=== PATIENT | female | born 1950 | race Caucasian/White ===

== ENCOUNTER 2023-09-06 04:23 | Emergency (ER) | payer MEDICARE, SELFPAY ==
[2023-09-06] VITALS (22 sets, daily range): BP systolic 99–128; BP diastolic 61–100; PULSE 63–84; RESP 12–21; TEMP 36.4; O2SAT 90–98
--- NOTE | ~2023-09-06 | CT_ITS ---
EXAMINATION: CT abdomen pelvis w con DATE: 09/06/2023 06:34 INDICATION: Abdominal pain. TECHNIQUE: Computed tomography (CT) of the abdomen and pelvis was performed with 100 mL Omnipaque 350 intravenous contrast. Automated exposure control and iterative reconstruction technique were employe d. The dose-length product was 1170.80 mGy-cm. COMPARISON: None. FINDINGS: The visualized portions of the lung bases demonstrate mild atelectasis. No pleural effusion . The heart size is normal. No pericardial effusion. The liver, gallbladder, spleen, pancreas, adrena l glands, and kidneys are normal. There is a large ventral hernia containing small and large bowel. T here is an anastomosis in the sigmoid colon. There are changes of right hemicolectomy. There are mult iple dilated loops of small bowel with transition point in the ventral hernia. There is a stent in le ft common iliac vein. 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 The orbits are normal. There is no free intraperitoneal fluid. There is severe lumbar spondylosis. IMPRESSION: 1. Small bowel obstruction with transition point in a ventral hernia. 2. 3.3 cm fusiform aneurysm of infrarenal aorta. Reviewed, dictated and finalized at location E.
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
--- NOTE | 2023-09-06 04:45 | ECG_ITS ---
SEE SCANNED COPY FOR CONFIRMED REPORT MTDD
[2023-09-06 05:23] LABS: Basophils Percent Auto 0.1 % (0.2-1.2); Eosinophils Percent Auto 0.1 % (0-4.4); Hematocrit 44.3 % (37.0-47.0); Hemoglobin 13.9 g/dL (12.0-15.0); Immature Granulocyte Absolute 0.01 K/mm3 (0.00-0.031); Immature Granulocyte Percent A 0.1 % (0-0.5); Lymphocytes Absolute Auto 0.87 K/mm3 (0.9-3.2); Lymphocytes Percent Auto 11.6 % (18.3-44.2); Mean Corpuscular HGB Conc 31.4 g/dl (32-36); Mean Corpuscular Hemoglobin 29.7 pg (26-34); Mean Corpuscular Volume 94.7 fl (80-100); Mean Platelet Volume 9.5 fl (7.4-10.4); Monocytes Absolute Auto 0.2 K/mm3 (0.1-0.6); Monocytes Percent Auto 3.2 % (2.6-8.5); Neutrophils Absolute Auto 6.4 K/mm3 (1.3-6.7); Neutrophils Percent Auto 84.9 % (45.5-73.1); Platelet Count Result 315 k/mm3 (150-375); Red Blood Count 4.68 M/mm3 (4.2-5.4); Red Cell Distribution Width 12.7 % (11.5-14.5); White Blood Count 7.5 K/mm3 (4.5-10.0)
[2023-09-06] MEDS: SODIUM CHLORIDE 0.9% IV 500 ML 999 ML IV CONT (05:27)
[2023-09-06] MEDS: ONDANSETRON INJ 4 MG/2 ML VIAL IV PUSH (05:28)
[2023-09-06] MEDS: FAMOTIDINE 20 MG/2 ML VIAL IV PUSH (05:28)
[2023-09-06] MEDS: MORPHINE SULFATE (*CRX) 4 MG/ML INJ IV PUSH (05:28)
[2023-09-06 05:34] LABS: Prothrombin Time 13.8 Seconds (11.1-14.7)
[2023-09-06 05:35] LABS: Lactic Acid Reflex 2.6 mmol/L (0.7-2.0); Partial Thromboplastin Time 31.5 Seconds (22.3-36.8)
--- NOTE | 2023-09-06 06:20 | PC.NURSE ---
Patient taken to CT via stretcher at this time with green top for Istat. New green top sent to lab as well.
[2023-09-06 06:28] LABS: Estimated Glomerular Filt Rate 44
[2023-09-06 06:45] LABS: Troponin I < 0.012 ng/mL (0.000-0.034)
[2023-09-06 07:38] LABS: Alanine Aminotransferase 17 U/L (6-35); Albumin Level 3.8 g/dL (3.5-5.1); Alkaline Phosphatase 124 U/L (38-126); Anion Gap 4 mmol/L (4-12); Aspartate Amino Transferase 18 U/L (14-36); Bilirubin,Total 0.4 mg/dL (0.2-1.3); Blood Urea Nitrogen 24 mg/dL (7-17); Calcium 8.9 mg/dL (8.4-10.2); Carbon Dioxide 24 mmol/L (22-30); Chloride 112 mmol/L (98-107); Estimated Glomerular Filt Rate 54; Glucose 119 mg/dL (65-110); Magnesium 1.8 mg/dL (1.6-2.3); Potassium 4.9 mmol/L (3.4-5.0); Sodium 140 mmol/L (137-145)
[2023-09-06 07:54] LABS: Lipase 60 U/L (23-300)
[2023-09-06 07:55] LABS: Appearance Urine Cloudy (Clear); Bacteria Urine 4+ /hpf; Bilirubin Urine Negative (Negative); Blood Urine 1+ (Negative); Color Urine Yellow (Yellow); Glucose Urine UA Negative (Negative); Ketones Urine Negative (Negative); Leukocyte Esterase Ur Negative LEU/UL (Negative); Need Manual Microscopic Reviewed; Nitrate Urine Positive (Negative); Non Pathogenic Casts 0-2; Protein Urine Negative (Negative); Squamous Epithelial Cell Urine Occasional /hpf (Few); Urobilinogen Urine 0.2 mg/dL (<2.0); pH Urine 5.5 (5.0-9.0)
[2023-09-06 07:57] LABS: Add Urine Microscopic? YES; Specific Grav Ur > 1.045 (1.001-1.035)
--- NOTE | 2023-09-06 08:04 | PC.NURSE ---
Accepted to [facility] # [id number]* Accepted by Dr Schulz
[2023-09-06] MEDS: levoFLOXacin 750 MG/D5W 150 ML 750 MG/150 ML BAG 100 MG IVPB (08:14)
[2023-09-06 08:20] LABS: Reflex Lactic Acid Yes or No Add Lactic
== END 2023-09-06 09:08 | disposition short-term general hospital (02) ==
PROVIDERS: Student in an Organized Health Care Education/Training Program; Emergency Provider Emergency Medicine
DX: K56.601 Complete intestinal obstruction, unspecified as to cause (principal); K43.9 Ventral hernia without obstruction or gangrene; E87.20 Acidosis, unspecified
CPT/HCPCS: 36415; 74177; 80053; 81001; 83605; 83690; 83735; 84484; 85025; 85610; 85730; 87077; 87086; 87088; 87186; 93005; 96361; 96365; 96375; 99285; J1956; J2270; J2405; J7040; Q9967